=== PATIENT | female | born 2000 | race Caucasian/White ===

== ENCOUNTER 2022-09-25 17:15 | Emergency (ER) | payer BC, MEDICAID, SELFPAY ==
[2022-09-25 17:18] VITALS: BP 105/72; PULSE 119; RESP 14; TEMP 36.4; O2SAT 98
[2022-09-25 17:47] LABS: Basophils Absolute Auto 0.1 K/mm3 (0.0-0.1); Basophils Percent Auto 0.7 % (0.2-1.2); Eosinophils Absolute Auto 0.4 K/mm3 (0-0.3); Eosinophils Percent Auto 2.6 % (0-4.4); Hematocrit 34.5 % (37.0-47.0); Hemoglobin 12.1 g/dL (12.0-15.0); Immature Granulocyte Absolute 0.07 K/mm3 (0.00-0.031); Immature Granulocyte Percent A 0.5 % (0-0.5); Lymphocytes Absolute Auto 2.35 K/mm3 (0.9-3.2); Lymphocytes Percent Auto 17.2 % (18.3-44.2); Mean Corpuscular HGB Conc 35.1 g/dl (32-36); Mean Corpuscular Hemoglobin 31.6 pg (26-34); Mean Corpuscular Volume 90.1 fl (80-100); Mean Platelet Volume 11.7 fl (7.4-10.4); Monocytes Absolute Auto 0.8 K/mm3 (0.1-0.6); Monocytes Percent Auto 5.9 % (2.6-8.5); Neutrophils Percent Auto 73.1 % (45.5-73.1); Platelet Count Result 144 k/mm3 (150-375); Red Blood Count 3.83 M/mm3 (4.2-5.4); Red Cell Distribution Width 13.2 % (11.5-14.5); White Blood Count 13.7 K/mm3 (4.5-10.0)
[2022-09-25 17:49] LABS: Appearance Urine Cloudy (Clear); Bilirubin Urine 1+ (Negative); Blood Urine Negative (Negative); Color Urine Yellow (Yellow); Glucose Urine UA Negative (Negative); Ketones Urine Negative (Negative); Leukocyte Esterase Ur 1+ LEU/UL (Negative); Nitrate Urine Negative (Negative); Protein Urine 1+ mg/dL (Negative); Specific Grav Ur 1.025 (1.001-1.035); Urobilinogen Urine 0.2 mg/dL (<2.0)
[2022-09-25 17:53] LABS: Add Urine Microscopic? YES
[2022-09-25 17:54] LABS: RBC Urine 0-2 /hpf (0-2); Squamous Epithelial Cell Urine Moderate /hpf (Few)
[2022-09-25 17:55] LABS: Bacteria Urine Trace /hpf; Mucus Urine Present /lpf
[2022-09-25 18:36] LABS: Alanine Aminotransferase 15 U/L (6-35); Albumin Level 3.9 g/dL (3.5-5.1); Alkaline Phosphatase 43 U/L (38-126); Anion Gap 6 mmol/L (8-16); Aspartate Amino Transferase 18 U/L (14-36); Bilirubin,Total 0.3 mg/dL (0.2-1.3); Blood Urea Nitrogen 5 mg/dL (7-17); Calcium 8.9 mg/dL (8.4-10.2); Carbon Dioxide 21 mmol/L (22-30); Chloride 106 mmol/L (98-107); Estimated CRCL calculation 143 ml/min; Estimated Glomerular Filt Rate > 60; Glucose 87 mg/dL (65-110); Lipase 38 U/L (23-300); Potassium 3.8 mmol/L (3.4-5.0); Sodium 133 mmol/L (137-145)
--- NOTE | 2022-09-25 19:25 | ED.GENADULT ---
HPI - General Adult General Chief complaint: Abdominal Pain Stated complaint: abd pain /18 wks preg Time Seen by Provider: 09/25/22 18:41 Source: patient Mode of arrival: ambulatory Limitations: no limitations History of Present Illness HPI narrative: This is a 21-year-old female who is nearly 18 weeks and presents to the ED with chief complaint of lower abdominal pain bilaterally onset last night. She states that radiates from both sides of the back. She reports it is worse on the left side. She states it comes in waves. Reports that is 6 or 7 right now. She reports additional complaints of slight spotting last night but no bleeding since. Denies any urinary burning, vaginal pain or discharge. Denies any concern for STDs. Denies fevers, chills. Reports she has occasional vomiting associated with but nothing increased. Denies chest pain, shortness of breath, cough. States she has close follow-up with Dr. Gong. Related Data Home Medications Medication Instructions Recorded Confirmed No Home Medications 08/08/22 08/08/22 Allergies Allergy/AdvReac Type Severity Reaction Status Date / Time No Known Allergies Allergy Verified 09/05/22 10:17 [facility] Past Medical History Medical History Suppression of menses Family History Family History Mother Hypertension Breast cancer Father Hypertension Lung cancer Social History Social History Smoking status: Former smoker Alcohol intake: former Substance use: former Substance use type: marijuana Last use: when she discovered she was Lack of Transportation: No Lack of Food: Sometimes True Current Housing: I Have Housing Concerned About Future Housing: No Difficulty Paying Gas/Electric Bills: No Difficulty Paying for Meds: No Currently Unemployed: No Education: High School Diploma/GED Difficulty w/ Childcare or Family Care: No Living arrangements: with family Occupation/Education: occupation Gender identity (if verbalized by the patient): Female Sexual Orientation (if Verbalized by the Patient): Straight or Heterosexual Exam Narrative: GENERAL: Well-appearing, well-nourished, and in no acute distress. HEAD: Normocephalic, atraumatic. EYES: PERRLA and EOMI. ENT: Nares clear, no rhinorrhea or epistaxis. Mucous membranes moist. Oropharynx without tonsillar hypertrophy exudate or other lesions. NECK: Supple. No adenopathy or masses. CHEST: No respiratory distress. Clear to auscultation. No wheezes rales or rhonchi HEART: Regular rate and rhythm. No murmur heard. Normal peripheral pulses. ABDOMEN: Mild left flank tenderness present. Negative right flank tenderness. Soft, otherwise nontender, nondistended, normal active bowel sounds. MSK: Normal range of motion. No edema. SKIN: Warm, dry, no rash. NEURO: Alert and oriented x3. No focal deficits. PSYCH: Normal mood and affect. Pelvic exam done with female nurse tech waistband setter present: Cervical os closed Scant amount of white discharge No bleeding Course Course Emergency Course: 2030: Bedside heart tone at 160. Vital Signs Vital signs: Vital Signs Temperature 97.6 F 09/25/22 17:18 Pulse Rate 119 H 09/25/22 17:18 Respiratory Rate 14 09/25/22 17:18 Blood Pressure 105/72 09/25/22 17:18 Pulse Oximetry 98 09/25/22 17:18 Oxygen Delivery Room Air 09/25/22 17:18 Temperature 97.6 F 09/25/22 17:18 Pulse Rate 119 H 09/25/22 17:18 Respiratory Rate 14 09/25/22 17:18 Blood Pressure 105/72 09/25/22 17:18 Pulse Oximetry 98 09/25/22 17:18 Oxygen Delivery Room Air 09/25/22 17:18 Medical Decision Making MDM Narrative Medical decision making narrative: This is a 21-year-old female who presents to the ED with abdominal pain onset x2
[2022-09-25] MEDS: ACETAMINOPHEN 325 MG TABLET 650 MG PO (22:15)
[2022-09-25] MEDS: RHO(D) IMMUNE GLOBULIN 300 MCG/2 ML SYRINGE IM (22:17)
== END 2022-09-25 22:23 | disposition home or self-care (01) ==
PROVIDERS: Preventive Medicine Aerospace Medicine; Emergency Provider Physician Assistant
DX: O23.42 Unspecified infection of urinary tract in pregnancy, second trimester (principal); N39.0 Urinary tract infection, site not specified; Z3A.18 18 weeks gestation of pregnancy; Z87.891 Personal history of nicotine dependence
CPT/HCPCS: 36415; 80053; 81001; 81025; 83690; 84702; 85025; 85461; 86850; 86900; 86901; 90384; 96372; 99284; A9270; J2790

== ENCOUNTER 2022-12-16 13:10 | Outpatient (RCR) | payer OTHER, SELFPAY ==
[2022-12-15 11:00] LABS: HIV 1/2 Ab P24 Ag Result Negative (Negative)
[2022-12-16] MEDS: RHO(D) IMMUNE GLOBULIN 300 MCG/2 ML SYRINGE IM (13:36)
== END 2023-03-15 23:59 | disposition home or self-care (01) ==
LOC: ANHLAB 13:10
PROVIDERS: Visit Provider Obstetrics & Gynecology
DX: Z11.4 Encounter for screening for human immunodeficiency virus [HIV] (principal); Z29.13 Encounter for prophylactic Rho(D) immune globulin; O36.0190 Maternal care for anti-D [Rh] antibodies, unspecified trimester, not applicable or unspecified; Z3A.00 Weeks of gestation of pregnancy not specified
CPT/HCPCS: 36415; 85461; 86703; 86850; 86880; 86900; 86901; 90384; 96372; G0432; J2790

== ENCOUNTER 2023-02-13 16:57 | Inpatient (IN) | payer OTHER, SELFPAY ==
[2023-02-13] VITALS (15 sets, daily range): BP systolic 106–127; BP diastolic 57–99; PULSE 67–84; TEMP 36.4; BMI 29.5
[2023-02-13 17:43] LABS: Basophils Absolute Auto 0.1 K/mm3 (0.0-0.1); Basophils Percent Auto 0.7 % (0.2-1.2); Eosinophils Absolute Auto 0.4 K/mm3 (0-0.3); Eosinophils Percent Auto 2.1 % (0-4.4); Hemoglobin 11.3 g/dL (12.0-15.0); Immature Granulocyte Absolute 0.19 K/mm3 (0.00-0.031); Lymphocytes Absolute Auto 2.79 K/mm3 (0.9-3.2); Lymphocytes Percent Auto 15.2 % (18.3-44.2); Mean Corpuscular HGB Conc 35.3 g/dl (32-36); Mean Corpuscular Hemoglobin 31.6 pg (26-34); Mean Corpuscular Volume 89.4 fl (80-100); Mean Platelet Volume 11.8 fl (7.4-10.4); Monocytes Absolute Auto 1.1 K/mm3 (0.1-0.6); Monocytes Percent Auto 6.1 % (2.6-8.5); Neutrophils Absolute Auto 13.8 K/mm3 (1.3-6.7); Neutrophils Percent Auto 74.9 % (45.5-73.1); Platelet Count Result 152 k/mm3 (150-375); Red Blood Count 3.58 M/mm3 (4.2-5.4); White Blood Count 18.4 K/mm3 (4.5-10.0)
--- NOTE | 2023-02-13 17:48 | LDADM ---
This patient, Diana Brown, was admitted to Labor/Delivery/Recovery 105 on 02/13/23 at 16:57. Plans for labor, pain management and were discussed with patient. Patient/family oriented to hospital policies and general routines including ID bracelet, bed and alarms, visiting hours, pain management, procedures, bathroom and other care routines, personal items, smoking policy, room service/diet and guest tray routines, security routines, and visiting hours. Patient/Family are encouraged to report perceived risks to care and to ask questions if they do not understand what they are told or what they should do. See OBIX for further documentation.
[2023-02-13] MEDS: DINOPROSTONE 10 MG VAG INSERT VAGINAL (17:54)
[2023-02-13 19:30] LABS: Amphetamine Screen Urine Negative (Negative); Barbiturate Screen Urine Negative (Negative); Benzodiazepines Screen Urine Negative (Negative); Cannabinoid Screen Urine Positive (Negative); Cocaine Screen Urine Negative (Negative); Methadone Screen Urine Negative (Negative); Opiate Screen Urine Negative (Negative); Phencyclidine Screen Urine Negative (Negative)
[2023-02-13] MEDS: ONDANSETRON INJ 4 MG/2 ML VIAL IV PUSH (23:27)
[2023-02-14] VITALS (139 sets, daily range): BP systolic 86–142; BP diastolic 47–126; PULSE 53–166; RESP 16–18; TEMP 36.2–36.8; O2SAT 89–100
[2023-02-14] MEDS: LACTATED RINGERS 1,000 ML 125 ML IV CONT ×2 (06:21→09:20)
[2023-02-14] MEDS: OXYTOCIN 30 UNITS/NS 500 ML 30 UNITS/500 ML BAG 6 UNITS IV CONT (06:21)
--- NOTE | 2023-02-14 06:46 | PM.IMHP ---
H&P: HPI History of Present Illness Date/Time: 02/14/23 06:46 Chief Complaint: induction of labor Narrative: Diana is a 22yo @ 38.3wks who presented over night for medical IOL. She was diagnosed with IUGR. She has felt good movement. No VB or LOF. She is s/p cervidil overnight. Her is complicated by: - Rubella & varicella non-immune - Rh neg - hx depression prepregnancy-- on zoloft - IUGR due to EFW 10%ile, AC of 4%ile Review of Systems Constitutional: Constitutional: Denies chills, Denies fever(s) and Denies headache(s) Eyes: Eyes: Denies change in vision ENT: Denies headache(s) Cardiovascular: Cardiovascular: Denies chest pain and Denies dyspnea Respiratory: Respiratory: Denies dyspnea Genitourinary: Genitourinary: Denies abnormal vaginal bleeding and Denies vaginal discharge Neurologic: Denies headache(s) Psychiatric: Psychiatric: Denies anxiety and Denies depression [facility] Past Medical History Medical History Suppression of menses Family History Family History Mother Hypertension Breast cancer Father Hypertension Lung cancer Social History Social History Smoking status: Never smoker Alcohol intake: former Substance use: former Substance use type: marijuana Other substance usage details: Stopped using 06/2022 Last use: when she discovered she was Do You Feel Safe in your Home?: Yes Lack of Transportation: No Lack of Food: Never True Current Housing: I Have Housing Concerned About Future Housing: No Difficulty Paying Gas/Electric Bills: No Difficulty Paying for Meds: No Currently Unemployed: No Education: High School Diploma/GED Difficulty w/ Childcare or Family Care: No Living arrangements: with family Occupation/Education: occupation Gender identity (if verbalized by the patient): Female Sexual Orientation (if Verbalized by the Patient): Straight or Heterosexual Spiritual care concerns: No Meds Home Medications and Allergies Home Medications Medication Instructions Recorded Confirmed Type docosahexaenoic acid 200 mg 200 mg PO DAILY 10/10/22 02/13/23 History capsule ( DHA) sertraline 50 mg tablet 50 mg PO DAILY #90 tabs 01/11/23 02/13/23 Rx Allergies Allergy/AdvReac Type Severity Reaction Status Date / Time No Known Allergies Allergy Verified 02/13/23 18:03 Vital Signs Vital Signs - 24 hr 02/13/23 17:28 02/13/23 17:31 02/13/23 17:46 Temperature Pulse Rate 78 71 81 Blood Pressure 123/73 115/68 119/71 Oxygen Delivery 02/13/23 18:01 02/13/23 18:16 02/13/23 18:31 Temperature Pulse Rate 76 69 70 Blood Pressure 115/66 116/62 117/74 Oxygen Delivery 02/13/23 18:46 02/13/23 19:01 02/13/23 19:16 Temperature Pulse Rate 78 79 77 Blood Pressure 111/72 127/75 116/99 H Oxygen Delivery 02/13/23 19:31 02/13/23 19:46 02/13/23 21:01 Temperature Pulse Rate 67 75 75 Blood Pressure 115/75 124/72 120/67 Oxygen Delivery 02/13/23 22:01 02/13/23 23:01 02/14/23 00:01 Temperature Pulse Rate 84 74 63 Blood Pressure 119/74 106/57 L 129/69 Oxygen Delivery 02/13/23 20:30 02/14/23 00:05 02/14/23 01:01 Temperature 97.5 F L 97.2 F L Pulse Rate 65 Blood Pressure 100/53 L Oxygen Delivery 02/14/23 02:01 02/14/23 02:00 02/14/23 04:32 Temperature 97.8 F Pulse Rate 68 65 Blood Pressure 100/48 L 111/47 L Oxygen Delivery 02/14/23 04:30 02/14/23 05:01 02/14/23 06:01 Temperature 97.7 F Pulse Rate 61 60 Blood Pressure 101/49 L 107/65 Oxygen Delivery 02/14/23 06:02 02/13/23 17:46 Temperature 98 F Pulse Rate Blood Pressure Oxygen Delivery Room Air Exam Const: General: cooperative, healthy appearing, comfortable and no acute distress Orientation/
--- NOTE | 2023-02-14 12:18 | PM.OBPNLAB ---
Pain Control Date/time seen: 02/14/23 12:00 Pain control: epidural Pelvic Exam Dilation (cm): 4 (.5) Effacement (%): 90 station: -2 Contractions Monitor mode: Internal Contraction frequency: 2 Contraction intensity: Strong/Firm Status status: Category l Assessment and Plan Pitocin rate (mU/min): 6 Plan: continuous present management
[2023-02-14] MEDS: ONDANSETRON INJ 4 MG/2 ML VIAL IV PUSH (13:12)
[2023-02-14 14:36] LABS: Rapid Plasma Reagin Non-Reactive (NonReactive)
--- NOTE | 2023-02-14 14:47 | P.PCNOB_ITS ---
OB - Vaginal Delivery Note Procedure Delivery date: 02/14/23 Events: Intrauterine Growth Restriction (IUGR) Induction method: Per Cervidil Protocol Delivery augmentation: Rupture of Membranes and Pitocin Delivery monitor: External FHT and Internal Uterine Route of delivery: Laceration Description: Vaginal Delivery repair: vicryl Specimen: Yes (placenta) Quantitative Blood Loss (ml): 300 Anesthesia type: Epidural Disposition: Floor Complications: No immediate complications Baby Date of : 02/14/23 Time of : 14:19 Weeks of gestation at delivery: 38 (.3) Infant gender: Female Weight (pounds): 5 Weight (ounces): 11 presentation: vertex Placenta delivery description: Expressed Cord Vessel Description: 3 Vessels, Nuchal Cord (x2), Loose and Around Ext remity score one minute: 8 score five minutes: 9 Narrative: Diana rapidly progressed to complete dilation with strong desire to push. She pushed for approximately 2 contractions with good maternal effort. She delivered the head over intact perineum. Nuchal cord was noted but loose and delivered through. She easily delivered the infant's shoulders and body without complication. Nuchal cord x2 and extremity cord were removed. was placed skin to skin and had spontaneous cry after her mouth and nose were bulb suctioned. Delayed cord clamping was performed. The umbilical cord was then doubly clamped and cut. A segment of the cord was collected for cord gases. The remaining cord blood was collected for typing. With Pitocin running and gentle downward traction on the cord, the placenta delivered without complications. Bimanual massage was performed and good uterine tone with minimal bleeding was noted. She was examined and a small vaginal laceration at the hymen was noted and was bleeding. A [id number]-an-mnidq stitch using 3-0 Vicryl was placed and good hemostasis was noted. Her uterus remained firm with minimal bleeding. Sponge, lap, instrument, needle counts were correct at the end of the procedure. Mom and baby were left bonding in the birthing suite in stable condition. [facility] Delivery Billing Delivery Delivery: Delivery Charge
[2023-02-14] MEDS: OXYTOCIN 30 UNITS/NS 500 ML 30 UNITS/500 ML BAG 125 UNITS IV CONT (14:51)
[2023-02-14] MEDS: ACETAMINOPHEN 325 MG TABLET 650 MG PO (15:44)
--- NOTE | 2023-02-14 17:20 | PC.NURSE ---
Patient transferred to post room #280 via wheelchair. Support person present. Oriented to unit, room, information board, rooming in, admission packet and security measures. Patient verbalizes understanding.
[2023-02-15] MEDS: ACETAMINOPHEN 325 MG TABLET 650 MG PO (05:55)
[2023-02-15 06:05] LABS: Hematocrit 31.8 % (37.0-47.0); Hemoglobin 10.3 g/dL (12.0-15.0)
--- NOTE | 2023-02-15 07:16 | PM.OBPNVD ---
OB - PN: Subj Subjective Date/time seen: 02/15/23 07:16 Narrative: PPD#1 Diana reports doing well today. Her bleeding is dictaphone mechanic. Her pain is controlled. She is tolerating regular diet, voiding, passing gas, and ambulating without issues. She is bottle feeding. OB - PN: Obj Data Labs 02/15/23 03:10 Labs: Laboratory Results - last 24 hr 02/13/23 02/15/23 17:19 03:10 Hgb 10.3 L Hct 31.8 L RPR Non-reactive Blood Type AB Negative Antibody Screen TNP Baby's Blood Type A pos Baby's ENRIQUE Positive OB - PN A/P Assessment and Plan (1) Normal vaginal delivery of first : Code(s): O80 - Encounter for full-term uncomplicated delivery Status: Acute Plan day: 1 Plan: routine care Time Spent With Patient Time: Total time spent is greater than 50% in coordination of care (as documented) at patient's floor/unit and/or counseling patient: Review of Systems Constitutional: Constitutional: Denies chills, Denies fever(s) and Denies headache(s) Eyes: Eyes: Denies change in vision ENT: Denies dizziness and Denies headache(s) Cardiovascular: Cardiovascular: Denies chest pain, Denies palpitations and Denies dyspnea Respiratory: Respiratory: Denies cough and Denies dyspnea Gastrointestinal: Gastrointestinal: Denies nausea and Denies vomiting Neurologic: Denies dizziness and Denies headache(s) Endocrine: Endocrine: Denies palpitations Exam Const: General: cooperative, comfortable and no acute distress Orientation/consciousness: patient oriented x3 Resp: Effort & Inspection: normal respiratory effort Auscultation: clear to auscultation bilaterally Cardio: Rate: regular rate GI: Inspection: non-distended GI Palp: No abdominal tenderness and Yes Soft to palpation Auscultation: normal bowel sounds : Other: fundus firm Skin: General skin exam: normal color Neuro: General: patient oriented x3 Extrem: General: normal to inspection Psych: Appearance: grossly normal Affect: normal affect Attitude: cooperative
--- NOTE | 2023-02-15 08:20 | WPDANLDPN2 ---
Anes-Prog Note L&D Date/Time: 02/15/23 08:20 Neuro status: Neuro function grossly intact. Cardiovascular status: normal Respiratory status: normal Airway patency: baseline Mental status: baseline Post-Op hydration status: normal Vital Signs: Last Vital Signs Temp 36.6 C 02/14/23 23:45 Pulse 96 02/14/23 23:45 Resp 18 02/14/23 23:45 BP 130/76 02/14/23 23:45 Pulse Ox 97 02/14/23 23:45 O2 Del Method Room Air 02/14/23 19:23 Pain score (VAS): 0 I/O: Intake & Output 02/14/23 02/15/23 02/15/23 23:59 07:59 15:59 Output Total 150 Balance -150 Post-procedural complaints: none Patient feedback: Patient satisfied with anesthetic care.
[2023-02-15 08:53] VITALS: BP 120/61; PULSE 75; RESP 18; TEMP 36.6; O2SAT 96
--- NOTE | 2023-02-15 12:04 | PCCCNOTE ---
Care Coordination. Pt. referred to CC for positive UDS of THC and FOB . Met with pt., her mother, and grandmother at bedside. Pt. agreeable to have conversation alone. Pt. discussed murder of FOB. She reports they had kind of discussed not being together a few weeks before his , but he was still going to be involved with baby. Provided support, counseling (discussed options with her insurance), and resources for her. She reports has been feeling a little better after starting zoloft. We discussed post and signs especially with trauma of FOB . Pt. reports having good family support. She plans to return home with her mother and father. She reports having all necessary baby care items. Provided her also with a basket of baby care items. Spoke with [employer] at [facility] hotline and he states will not take situation as report (Intake ID#[id number]). Pt. denies substance use is an issue. She reports did smoke a little more after of FOB in early Dec., but slowed down use once zoloft was started.
[2023-02-15 12:05] VITALS: BP 121/78; PULSE 83; RESP 20; TEMP 36.8; O2SAT 98
[2023-02-15] MEDS: RHO(D) IMMUNE GLOBULIN 300 MCG/2 ML SYRINGE IM (12:30)
[2023-02-15] MEDS: MULTIVIT/MIN/PREN/FOL AC/IRON TABLET 1 TAB PO (15:09)
[2023-02-15] MEDS: IBUPROFEN 600 MG TABLET PO (15:10)
[2023-02-15 19:51] VITALS: BP 128/84; PULSE 62; RESP 16; TEMP 36.4; O2SAT 94
--- NOTE | 2023-02-16 07:13 | PM.OBDSVD ---
DS: Admitting Diagnosis Discharge Date 02/16/23 Admitting Diagnosis IUGR DS: Discharge Diagnosis Discharge Diagnosis (1) Normal vaginal delivery of first : Code(s): O80 - Encounter for full-term uncomplicated delivery Status: Acute (2) IUGR (intrauterine growth restriction) affecting care of mother: Code(s): O36.5990 - Maternal care for other known or suspected poor growth, unspecified trimester, not applicable or unspecified Status: Acute OB - DS: Summary OB Procedures : Ultrasound OB Procedures Intrapartum: Spontaneous Vag Delivery OB Procedures: : RHo (D) lg and Rubella lg Peripartum Data Delivery Method: Natural Vaginal Laceration Description: Vaginal complications: none [place] 1: Gender: Female Disposition of : home Status at Discharge Functional status at discharge: independent ambulation Overall status at discharge: patient is back to baseline Time Spent with Patient Time attestation: Total time spent providing and/or coordinating discharge services: Time spent: Less than 30 minutes Exam Const: General: cooperative, comfortable and no acute distress Orientation/consciousness: patient oriented x3 Resp: Effort & Inspection: normal respiratory effort Auscultation: clear to auscultation bilaterally Cardio: Rate: regular rate GI: Inspection: non-distended GI Palp: No abdominal tenderness and Yes Soft to palpation Auscultation: normal bowel sounds : Other: fundus firm Skin: General skin exam: normal color Neuro: General: patient oriented x3 Extrem: General: normal to inspection Psych: Appearance: grossly normal Affect: normal affect Attitude: cooperative DS: Data Data Completed and Pending Pending studies at discharge: Pending at discharge 02/14/23 14:55 Surgical [PTH] Routine Labs on day of discharge: Labs from last 24 hours 02/16/23 02/15/23 05:43 03:10 Rubella IgG Antibody Pending Blood Type AB Negative Antibody Screen TNP Screen Negative Baby's Blood Type A pos Baby's ENRIQUE Positive Doses of RhIg Required 1 Discharge Plan Discharge Attending physician on discharge: Virginia Dinh Discharging Clinician: Virginia Dinh Anticipated Discharge Date/Time: 02/16/23 11:00 Patient Disposition: Home, Self-Care Activity: may shower and pelvic rest Diet: regular Patient Instructions: Antibiotic Form, Vaginal Delivery (DC) Stand Alone Forms: General Discharge Information Follow-up/Referrals: Virginia Dinh MD [Physician] - 4 Weeks Discharge Medications: New docusate sodium 100 mg Capsule 100 mg PO BID PRN (Reason: Constipation) Qty: 60 0RF ibuprofen 600 mg Tablet 600 mg PO Q6H PRN (Reason: Cramping) Qty: 40 0RF acetaminophen 500 mg tablet 1,000 mg PO TID Qty: 60 0RF Continued sertraline 50 mg tablet 50 mg PO DAILY Qty: 90 0RF Discontinued DHA 200 mg capsule 200 mg PO DAILY Date of admission: 02/13/23 16:57 Primary Care Provider: PHYSICIAN,CONTINUOUS MINING MACHINE OPERATOR Admitting Provider: Virginia Dinh Attending physician on admission: Virginia Dinh Condition: Stable
[2023-02-16 07:30] LABS: Rubella IgG Antibody 5.5 IU/ML
[2023-02-16 08:56] VITALS: BP 136/89; PULSE 80; RESP 20; TEMP 36.6; O2SAT 98
[2023-02-16] MEDS: MEASLES,MUMPS,RUBELLA VACCINE 0.5 ML VIAL SUB-Q (09:17)
[2023-02-16] MEDS: ACETAMINOPHEN 325 MG TABLET 650 MG PO (09:17)
[2023-02-17 11:23] VITALS: BP 128/77; PULSE 78; RESP 18; TEMP 37.6; O2SAT 100
== END 2023-02-16 17:06 | disposition home or self-care (01) | DRG 560 ==
LOC: ANHLDR 17:02 → ANHOB2 02-14 17:35
PROVIDERS: Admitting Provider Obstetrics & Gynecology; Visit Provider Obstetrics & Gynecology
DX: O36.5930 Maternal care for other known or suspected poor fetal growth, third trimester, not applicable or unspecified (principal); Z37.0 Single live birth; Z3A.38 38 weeks gestation of pregnancy; O69.81X0 Labor and delivery complicated by cord around neck, without compression, not applicable or unspecified; O99.324 Drug use complicating childbirth; F12.90 Cannabis use, unspecified, uncomplicated
CPT/HCPCS: 36415; 80307; 85014; 85018; 85025; 85461; 86592; 86762; 86850; 86880; 86900; 86901; 86902; 88307; 90384; 90710; A9270; J2405; J2590; J2790; J2795; J7120

== ENCOUNTER 2024-10-21 10:45 | Outpatient (CLI) | payer OTHER, SELFPAY ==
[2024-10-21 11:23] LABS: Hematocrit 36.7 % (37.0-47.0); Hemoglobin 12.6 g/dL (12.0-15.0); Immature Granulocyte Percent A 0.4 % (0-0.5); Lymphocytes Absolute Auto 2.35 K/mm3 (0.9-3.2); Mean Corpuscular HGB Conc 34.3 g/dl (32-36); Mean Corpuscular Hemoglobin 31.0 pg (26-34); Mean Corpuscular Volume 90.4 fl (80-100); Nucleated Red Blood Cells Absolute Auto 0.000 K/mm3 (0.0-0.012); Nucleated Red Blood Cells Perc 0.0 % (0.0-0.2); Platelet Count Result 173 k/mm3 (150-375); Red Blood Count 4.06 M/mm3 (4.2-5.4); White Blood Count 7.9 K/mm3 (4.5-10.0)
--- OUTSIDE RECORDS SUMMARY | 2024-10-21 11:35 | XMS_ITS | Clinical Summary ---
Author Organization [facility] Address [address] [place] [id number] Care Team Providers Care Diecast Machine Operator Name Role Phone No, Physician Primary Care Provider [phone] Shahbaz Ann MD Unavailable [phone] Allergies No known active allergies Medications benzonatate (TESSALON) 100 mg capsuleIndicati ons:Cough Take 1 capsule (100 mg total) by mouth every 8 (eight) hours 21 capsule 07/01/2021 Active Active Problems No known active problems Social History Tobacco Use Types Packs/Day Years Used Date Smoking Tobacco: Former Cigarettes Smokeless Tobacco: Former Tobacco Cessation:Counseling Given: Not Answered Personal Safety Answer Date Recorded Getting School Help Needed Not on file 03/12 Comments Unknown Sex and Gender Information Value Date Recorded Sex Assigned at Not on file Legal Sex Female 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 Gender Identity Not on file Sexual Orientation Not on file Obstetrics History Para Term AB IAB SAB Ectopic Multiple Livin g Live Births 1 Date Outcome GA Total Labor Labor/2nd/3rd Weight Sex Type Anes PTL Bridgette A1 A5 Name Clin Last Filed Vital Signs Vital Sign Reading Time Taken Comments Blood Pressure 115/81 12/24/2022 11:30 PM CDT Pulse 73 12/24/2022 11:30 PM CDT Temperature 36.6 C (97.9 F) 12/24/2022 9:44 PM CDT Respiratory Rate 19 12/24/2022 11:30 PM CDT Oxygen Saturation 97% 12/24/2022 11:30 PM CDT Inhaled Oxygen Concentration - - Weight 78.9 kg (174 lb) 12/24/2022 9:44 PM CDT Height 170.2 cm (5' 7) 12/24/2022 9:44 PM CDT Body Mass Index 27.25 12/24/2022 9:44 PM CDT Plan of Treatment Health Maintenance Due Date Last Done Comments Cervical Cancer Screening 1999 Depression Screening 1999 Hepatitis C Screening 1999 Regular Well Visit/Exam 18-64 09/30/2017 DTaP/Tdap/Td Vaccine (7 - Td or Tdap) 03/06/2023 03/06/2013, 08/27/2004, 01/04/2001, Additional history exists Influenza Vaccine (#1) 2024 9, 11/11/2015, 12/12/2014, Additional history exists Pneumococcal vaccine <65 Completed 001, 06/30/2000, 03/27/2000, Additional history exists Hepatitis B Screening Completed 09/15/2003 , 1999, 1999 Varicella Vaccines Completed 09/20/2006, 10/02/2000 HPV Vaccines Completed 11/21/2013, 04/28, 03/06/2013 Insurance [employer] Member Subscriber Plan / Payer (Ef fective 2021-Present) Name:Diana Brown Relation to Subscriber:Self Name:Diana Brown Payer ID:[id number] (NAIC) Type:[facility] Address: [facility] [id number] Care Teams Diecast Machine Operator Relationship Specialty Start Date End Date No, Physician PCP - General 07/01/21 Shahbaz Ann MD [address] [place] [address] PCP - manager life Obstetrics and Gynecology 12/24/22
--- OUTSIDE RECORDS SUMMARY | 2024-10-21 11:35 | XMS_ITS | Clinical Summary ---
Author Organization [facility] Address [address] [place] [address] Phone Care Team Providers Care Experimental Welder Name Role Phone Unavailable Primary Care Provider Unavailabl e Allergies No known active allergies Medications acetaminophen (TYLENOL) 500 mg tablet Take 2 Tablets (1,000 mg) by mouth every 6 hours as needed for Pain. 30 Tablet 05/18/2020 5:13 PM CDT 05/18/2020 Active Social History Tobacco Use Types Packs/Day Years Used Date Smoking Tobacco: Never Alcohol Use Standard Drinks/Week Comments Not Currently 0 (1 standard drink = 0.6 oz pur e alcohol) Comments No Sex and Gender Information Value Date Recorded Sex Assigned at Not on file Legal Sex Female 12:20 PM CDT Gender Identity Not on file Sexual Orientation Not on file Last Filed Vital Signs Vital Sign Reading Time Taken Comments Blood Pressure 124/74 05/18/2020 12:26 PM CDT Pulse - - Temperature 36.7 C (98 F) 05/18/2020 12:26 PM CDT Respiratory Rate 16 05/18/2020 12:26 PM CDT Oxygen Saturation 99% 05/18/2020 12:26 PM CDT Inhaled Oxygen Concentration - - Weight - - Height - - Body Mass Index - - Plan of Treatment Health Maintenance Due Date Last Done Comments HPV VACCINES (1 - 3-dose series) 09/30/2014 DTAP/TDAP/TD VACCINES (1 - Tdap) 09/30/2018 HEPATITIS B VACCINES (1 of 3 - 19+ 3-dose series) 05/2018 CERVICAL CANCER SCREENING 09/30/2020 HPV/Cotest (21-29) 09/30/2020 PAP SMEAR 09/30/2020 INFLUENZA VACCINE (#1) 2024 Insurance BLUE ACCESS CHOICE RX [employer] (INTERNAL) [facility] [employer] [facility] [employer] [facility]
--- OUTSIDE RECORDS SUMMARY | 2024-10-21 11:35 | XMS_ITS | Clinical Summary ---
Author Organization [facility] Address [address] [place] [address] Care Team Providers [employer] Driver Name Role Phone Unavailable Primary Care Provider Unavailabl e Source Comments [facility],non-owned Affiliates and Associated Physician Practices is amultiple site organization consisting of ambulatory clinics and hospital sitesin [place], [place], [place] and [place]. This disclosure is being madepursuant to the Care Everywhere program and may not contain all information available regarding this patient. Last updated 17.[facility] Booster Allergies No known active allergies Medications * Be aware that medications may not be up to date on this document. Alwaysverify current medications with the patient. Norethin Carson-Eth Estrad-FE (BLISOVI FE 1.5/30 PO) Active fluticasone propionate (FLONASE) 50 MCG/ACT nasal sprayIndication s:Tinnitus of left ear [place] 1 spray into each nostril once daily 1 bottles 5 12/29/2016 Active Active Problems Problem Noted Date Diagnosed Date Tinnitus of left ear 12/29/2016 Nasal congestion 12/29/2016 Family History Medical History Relation Name Comments Anesthesia Reaction Neg Hx Social History Tobacco Use Types Packs/Day Years Used Date Smoking Tobacco: Passive Smo ke Exposure - Never Smoker Comments Unknown Sex and Gender Information Value Date Recorded Sex Assigned at Not on file Legal Sex Female 12:46 PM CDT Gender Identity Not on file Sexual Orientation Not on file Last Filed Vital Signs Vital Sign Reading Time Taken Comments Blood Pressure - - Pulse - - Temperature - - Respiratory Rate - - Oxygen Saturation - - Inhaled Oxygen Concentration - - Weight 104.4 kg (230 lb 2.6 oz) 12/29/2016 4:07 PM CDT Height 171.5 cm (5' 7.52) 12/29/2016 4:07 PM CD T Body Mass Index 35.5 12/29/2016 4:07 PM CDT Plan of Treatment Health Maintenance Due Date Last Done Comments HIV SCREENING 09/30/2014 HPV VACCINE (1 - 3-dose series) 09/30/2014 CHLAMYDIA/GONORRHEA SCREENING 2015 HEPATITIS C SCREENING 09/26/2017 DTAP/TDAP/TD VACCINES (1 - Tdap) 09/30/2018 HEPATITIS B VACCINE (1 of 3 - 19+ 3-dose series) 09/30/2018 PAP SMEAR 09/30/2020 COVID-19 VACCINE (1 - 2023-2 5 season) 2023 DEPRESSION SCREENING 02/28/2024 INFLUENZA VACCINE (#1) 2024 ZOSTER VACCINE (1 of 2) 09/30/2049 HIB VACCINE Aged Out No longer eligi ble based on patient's age to complete this topic MENINGOCOCCAL (Group B) VACC INE SHARED DECISION-MAKING Aged Out No longer eligibl e based on patient's age to complete this topic MENINGOCOCCAL GROUPS A/C/Y/W VACCINE Aged Out No longer eligible b ased on patient's age to complete this topic PNEUMOCOCCAL VACCINE Aged Out No long er eligible based on patient's age to complete this topic Insurance [facility] SELF PAY NO INSURANCE Member Subscriber Plan / Payer (Ef fective for All Dates) Name:Diana Chadwick Member ID:Not on file Relation to Subscriber:Not on file Name:NETTADIANA Subscriber ID:Not on file Address: [address] [place] [address] Payer ID:Not on file Group ID:Not on file Type:Self Pay Address: [place], [place] [address]
[2024-10-21 12:11] LABS: Syphilis IgG/IgM Antibody Non-Reactive (Nonreactive)
[2024-10-21 12:15] LABS: Hepatitis B Surface Antigen Negative (Negative)
[2024-10-21 12:24] LABS: HIV 1/2 Ab P24 Ag Result Negative (Negative)
[2024-10-21 12:53] LABS: Beta HCG Quantitative 77626.00 mIU/ML
[2024-10-22 05:07] LABS: Cytomegalovirus (CMV) Ab, IgG 3.80 U/mL (0.00-0.59)
[2024-10-22 14:08] LABS: Varicella-Zoster Ab, IgG Reactive (Non Reactive); Varicella-Zoster Ab, IgM <0.91 index (0.00-0.90)
[2024-10-24 12:08] LABS: Parvovirus B19, IgG 3.2 index (0.0-0.8); Parvovirus B19, IgM 0.2 index (0.0-0.8)
== END 2024-10-21 10:46 | disposition home or self-care (01) ==
LOC: ANHLAB 10:46
PROVIDERS: Visit Provider Obstetrics & Gynecology
DX: N91.2 Amenorrhea, unspecified (principal)
CPT/HCPCS: 36415; 84702; 85025; 86593; 86644; 86703; 86747; 86762; 86787; 86850; 86900; 86901; 87086; 87340; G0432